=== PATIENT | male | born 1970 | race African-American/Black ===

== ENCOUNTER 2017-02-08 10:22 | Emergency (ER) | payer MEDICAID ==
[~2017-02-08] VITALS: Ht 180.3 cm; Wt 87.1 kg
[2017-02-08 11:55] LABS: UA SPECIFIC GRAVITY 1.015 (1.005-1.035); microscopic required? YES; urine erythrocyte NEGATIVE (NEGATIVE)
[2017-02-08 12:19] VITALS: BP 118/64
== END 2017-02-08 12:19 | disposition home or self-care (01) ==
LOC: ED 10:22
PROVIDERS: Emergency Medicine
DX: R36.9 Urethral discharge, unspecified (principal); F17.200 Nicotine dependence, unspecified, uncomplicated
CPT/HCPCS: 87491; 87591; J0696